=== PATIENT | male | born 1990 | race Caucasian/White ===

== ENCOUNTER 2021-08-22 11:55 | Emergency (ER) | payer OTHER, SELFPAY ==
[2021-08-22 12:10] VITALS: BP 132/77; PULSE 77; RESP 14; TEMP 36.7; O2SAT 97; BMI 21.5
[2021-08-22 13:06] LABS: COVID19 -Nasal RAPID POSITIVE (Negative)
--- NOTE | 2021-08-22 13:46 | ED.URI ---
HPI - URI/Sore Throat General Chief Complaint: Upper Respiratory Symptoms Stated Complaint: Chest pain- referred by [place] [facility] Time Seen by Provider: 08/22/21 13:10 Source: patient Mode of arrival: Ambulatory History of Present Illness HPI Narrative: 30-year-old male nonsmoker with noncontributory medical history presents for evaluation of improving upper respiratory symptoms including nasal congestion, dry hacking cough, pleuritic anterior chest pain and fever as high as 101.4 along with chills. He denies GI symptoms such as nausea, vomiting or diarrhea. He denies any shortness of breath and states that overall his symptoms are significantly better. He had been exposed to a person later found to be positive for COVID up until Thursday evening and developed some symptoms until Thursday (this is day 4). He has had 2 Pfizer vaccinations but not the booster yet. And he went to a walk-in clinic but was sent here when they heard that he mentioned he had had chest pain. To be clear, his chest pain was sharp and stabbing, pleuritic in nature and resolved a few days ago. Related Data Allergies Allergy/AdvReac Type Severity Reaction Status Date / Time No Known Drug Allergies Allergy Verified 08/22/21 12:15 Review of Systems Review of Systems Narrative: GENERAL see HPI HEENT: Denies sinus pain, ear pain, sore throat, difficulty swallowing, dizziness. RESPIRATORY: See HPI CARDIOVASCULAR: See HPI GASTROINTESTINAL: Denies nausea, vomiting, abdominal pain, diarrhea, constipation, melena. : Denies dysuria, frequency, incontinence, hematuria, urinary retention. MUSCULOSKELETAL: denies weakness, joint pain, or bony pain SKIN: Denies rash, skin lesions, or other NEUROLOGIC: Denies weakness, headache, numbness, change in speech, confusion, seizures, incoordination. PSYCHIATRIC: No concerning psychosocial issues. 12 point review of systems is negative except for those stated above Patient History Social History Smoking Status: Unknown if ever smoked Smoking Status: Unknown if ever smoked alcohol intake frequency: holidays/special occasions only Substance Use Type: does not use Exam Narrative Exam Narrative: GEN: AOx3 and in no obvious distress, no increased work of breathing, reassuring vitals EYES: Pupils are equal, round, and reactive to light and accommodation. Extraoccular muscles are intact bilaterally. There is no subconjunctival hemorrhage or exudate. CHEST: Lungs are clear to auscultation bilaterally and free of wheezes, rales, or rhonchi. Heart rate is regular rhythm, there are no murmurs, clicks, rubs, or gallops. There is no chest wall tenderness. ABD: Abdomen is soft and nontender. There is no guarding or rebound. Bowel sounds are normal in all 4 quadrants. There is no mass or organomegaly. EXT: Full painless ROM of all extremities with no loss of sensation or strength. SKIN: Warm, pink, and dry. No erythema or rash Initial Vital Signs Initial Vital Signs: Vital Signs Temperature 98.1 F 08/22/21 12:10 Pulse Rate 77 08/22/21 12:10 Respiratory Rate 14 08/22/21 12:10 Blood Pressure 132/77 08/22/21 12:10 Pulse Oximetry 97 08/22/21 12:10 Course Orders Ordered: ED Orders 08/22/21 12:13 COVID19 -Nasal swab/Pre-Proc Stat 08/22/21 12:17 EKG-12 Lead Stat Vital Signs Vital signs: Vital Signs - 8 hr 08/22/21 12:10 Temperature 98.1 F Pulse Rate 77 Respiratory Rate 14 Blood Pressure 132/77 Pulse Oximetry 97 MDM - URI/Sore Throat Lab Data Labs: Lab Results 08/22/21 Range/Units 12:13 SARS-CoV-2 (PCR) Positive H (Negative) ECG Data Interpretation: EKG is normal sinus rhythm rate [83 ] and free of any signs of ischemia or ectopy. No ST segmental elevation or depression. No T wave inversions [facility] Narrative Medical decision making narrative: Patient with very reassuring history and physical exam. He is found to be COVID positive today. His vital signs demonstrate no fever tachycardia nor hypoxemia. His exam is very reassuring with nonlabored breathing, resting comfortably, overall he feels significantly better than a few days ago. His chest pain has been gone for a few days but was pleuritic in nature. EKG is non ischemic. No indication for labs, imaging. Return precautions given and questions answered to his apparent satisfaction Discharge Plan Departure Patient Disposition: Home Clinical Impression: COVID-19 Instructions: DI for COVID-19 (Suspected or Confirmed ) Activity Restrictions/Additional Instructions: *You have been diagnosed with [ COVID-19] *What to do: * per recommendations from the CDC and the [facility] Department of Health * stay home except to get medical care. Restrict activities outside your home, except for getting medical care. Do not go to work, school, or public areas. Avoid using public transportation, ride sharing, or taxis. * separate yourself from other people in your home. * call ahead before visiting your doctor * Wear a facemask * Cover your coughs and sneezes * Clean your hands often * Avoid sharing household items * Clean all high-touch services every day * Monitor your symptoms and seek prompt medical attention if your illness is worsening, particularly with difficulty in breathing. You may discontinue your isolation when: 1. You have been fever-free for at least 24 hours without the use of fever reducing medication, AND 2. Your symptoms are getting better 3. At least 5 days have passed since symptoms first appeared. You will need to wear a mask for days 5-10 4. 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
== END 2021-08-22 13:56 | disposition home or self-care (01) ==
PROVIDERS: Emergency Medicine; Emergency Provider Emergency Medicine
DX: U07.1 COVID-19 (principal)
CPT/HCPCS: 87635; 93005; 93010; 99281; 99283; C9803